=== PATIENT | female | born 1975 | race Caucasian/White ===

== ENCOUNTER → 2020-03-18 | Outpatient (CLI) | payer MEDICARE, OTHER ==
[~2020-03-18] MED LIST: CLONAZEPAM 0.50.5 M1 PO; CYMBALTA60 MG PO; LEXAPRO 10 MG T10 M2 PO; LIPITOR20 MG PO; MIRALAX119 GM PO; NORETHINDRONE PO; OMEPRAZOLE 20 M20 M1 PO; PHENERGAN 25 MG25 M1 PO; RIZATRIPTAN5 MG PO; ROBAXIN 750 MG750 MG PO; SUPER B-50 COM1 EACH PO; TRAMADOL 50 MG50 MG PO; TRAZODONE PO; VALTREX 500 MG500 M1 PO; VITAMIN D PO; VYVANSE40 MG PO; ZOFRAN4 MG PO
== END ==
LOC: M.PC 08:50
PROVIDERS: ATTEND Physical Medicine & Rehabilitation
DX: M54.16 Radiculopathy, lumbar region (principal); M25.512 Pain in left shoulder; M54.5 Low back pain; M54.2 Cervicalgia

== ENCOUNTER → 2020-03-20 | Outpatient (CLI) | payer MEDICARE, OTHER | END | disposition home or self-care (01) | LOC: M.PC 09:10 | PROVIDERS: ATTEND Physical Medicine & Rehabilitation | DX: M51.16 Intervertebral disc disorders with radiculopathy, lumbar region (principal); M47.26 Other spondylosis with radiculopathy, lumbar region; M54.5 Low back pain; G89.29 Other chronic pain; M79.18 Myalgia, other site; F32.9 Major depressive disorder, single episode, unspecified; F41.9 Anxiety disorder, unspecified; G43.909 Migraine, unspecified, not intractable, without status migrainosus; R53.82 Chronic fatigue, unspecified; Z98.890 Other specified postprocedural states; Z79.899 Other long term (current) drug therapy ==

== ENCOUNTER 2020-03-22 22:54 | Emergency (ER) | payer MEDICARE, OTHER ==
[~2020-03-22] VITALS: Ht 162.6 cm; Wt 59.0 kg
[2020-03-22 23:06] VITALS: BP 110/78
== END 2020-03-22 23:34 | disposition left against medical advice (07) ==
LOC: M.ERS 22:54
DX: M54.9 Dorsalgia, unspecified (principal); Z53.21 Procedure and treatment not carried out due to patient leaving prior to being seen by health care provider

== ENCOUNTER → 2020-04-03 | Outpatient (CLI) | payer MEDICARE, OTHER | LOC: M.PC 10:20 | PROVIDERS: ATTEND Physical Medicine & Rehabilitation | DX: M47.816 Spondylosis without myelopathy or radiculopathy, lumbar region (principal); M51.37 Other intervertebral disc degeneration, lumbosacral region; M79.604 Pain in right leg; M79.605 Pain in left leg ==

== ENCOUNTER → 2020-04-10 | Outpatient (CLI) | payer MEDICARE, OTHER | END | disposition home or self-care (01) | LOC: M.PC 09:00 | PROVIDERS: ATTEND Physical Medicine & Rehabilitation | DX: M51.16 Intervertebral disc disorders with radiculopathy, lumbar region (principal); M47.26 Other spondylosis with radiculopathy, lumbar region; M79.605 Pain in left leg; G89.29 Other chronic pain; F32.9 Major depressive disorder, single episode, unspecified; F41.9 Anxiety disorder, unspecified; G43.909 Migraine, unspecified, not intractable, without status migrainosus; R53.82 Chronic fatigue, unspecified; Z98.890 Other specified postprocedural states; F17.210 Nicotine dependence, cigarettes, uncomplicated; Z79.899 Other long term (current) drug therapy; Z88.8 Allergy status to other drugs, medicaments and biological substances ==

== ENCOUNTER → 2020-05-01 | Outpatient (CLI) | payer MEDICARE, OTHER ==
[~2020-05-01] MED LIST changes: +FLEXERIL PO; +MULTI-VITAMIN1 EAC5 PO
== END ==
LOC: M.PC 08:22
PROVIDERS: ATTEND Physical Medicine & Rehabilitation
DX: M51.36 Other intervertebral disc degeneration, lumbar region (principal); M48.07 Spinal stenosis, lumbosacral region; M79.604 Pain in right leg; M79.605 Pain in left leg; G89.4 Chronic pain syndrome; M25.511 Pain in right shoulder